=== PATIENT | male | born 1940 | race Caucasian/White ===

== ENCOUNTER 2017-11-06 12:18 | Emergency (ER) | payer OTHER ==
--- NOTE | 2017-11-06 13:36 | EDPHY ---
HPI/HX/ROS/PE/MDM Narrative: CHIEF COMPLAINT: Dizziness HISTORY OF PRESENT ILLNESS: This patient is an anticoagulated (Pradaxa) 77 year-old male with history of Parkinson's disease and atrial fibrillation complaining of several days of increasing dizziness. He becomes very dizzy and lightheaded with mild exertion. This has been quite debilitating to him. The patient reports he changed his diet and medications about six weeks ago, and switched to Mirapex XR instead of instant release 5 times per day. He has a neurogenic bladder which has kept him up at night and he has been unable to sleep well. He has felt considerable muscle weakness recently compared to his baseline. Denies any melena, hematochezia, or hematemesis. He endorses frequent constipation. He endorses infrequent stabbing left-sided chest pains over the last couple days. He reports a recent cardiac scan of some kind at [facility] that showed clear cardiac arteries. No fever, chills, shortness of breath, palpitations, vomiting, diarrhea, headache. REVIEW OF SYSTEMS: A comprehensive 10 system review of systems is otherwise negative aside from elements mentioned in the history of present illness and medical decision making. PAST MEDICAL HISTORY: Parkinson's disease (Mirapex, Sinemet). Atrial fibrillation (Pradaxa, Digitoxin). History of TIA. SOCIAL HISTORY: Nonsmoker. Occasional alcohol use. No marijuana or illicit drug use. VITAL SIGNS: Reviewed by me GENERAL: Pale. Well-developed, well-nourished, resting comfortably in no respiratory distress. HEENT: Atraumatic. Eyes: No icterus, no injection. Mouth: moist mucous membranes. No erythema or lesions. Neck: supple with no adenopathy. LUNGS: Diminished but clear to auscultation bilaterally, no wheezes, rhonchi or rales. CARDIAC: Irregularly irregular. No tachycardia. No rubs, murmurs or gallops. ABDOMEN: Soft, nontender, nondistended, bowel sounds normal. RECTAL: Greenish malodorous mucous present. No izaiah blood noted. BACK: No CVA tenderness. EXTREMITIES: No trauma. Trace edema at ankles. Range of motion is normal throughout. NEURO: Alert and oriented, grossly nonfocal. SKIN: Warm and dry, no rash. PSYCHIATRIC: Normal mentation, no agitation. Portions of this note were transcribed by a medical officer. I personally performed a history, physical exam, medical decision making, and confirmed accuracy of information the transcribed note. ED Course: Anticoagulated 77 y/o male with history of Parkinson's presents with sever days of increasing dizziness and weakness with near-syncopal episodes. Plan for EKG, chest x-ray, labs including CBC, chemistries, liver, lipase, troponin, UA, occult blood. IV established. Plan to administer 1L IV NS. 12-LEAD EKG: Please see the full report in [facility]. My interpretation: Atrial fibrillation. CXR negative for acute processes. Stool occult blood screen negative. 15:39 Patient states he is feeling better. Plan to road test. 15:50 Per nurse, the patient's BP dropped from about 148 systolic sitting to 87 systolic on standing. The patient still wanted to attempt walking, but felt considerably dizzy. Plan to admit for near-syncope, orthostatic hypotension, and dehydration. 15:57 Spoke with hospitalist service. Dr. Gore accepts admission. Ongoing IV fluids provided. 17:42 Patient is now feeling much better and was able to ambulate without symptoms. He is no longer orthostatic.. His , now at bedside, states his walk looks "amazing". The patient wishes to be discharged home. He has follow- up appointment with his physician tomorrow. As symptoms of orthostatic hypotension and near-syncope have resolved, I believe the patient is safe to be discharged home if he wishes. Plan to cancel admission, discharge home in good condition. He will follow up with his primary care provider tomorrow as scheduled and receive an additional 1L IV NS at that time. Follow up and return precautions discussed. The patient and his are comfortable with this plan. MDM: Differential diagnosis for the patient's primary complaint of dizziness and near syncope was considered including but not limited to vasovagal syncope, arrhythmia, dehydration, medication effects, and blood loss. - Data Points Imaging Results: Impression: No active cardiopulmonary disease seen. Dictated By: Jed Magdaleno MD Imaging: I viewed and interpreted images myself Laboratory Results: Laboratory Results 11/06/17 13:55 11/06/17 13:55 Medications Given: Discontinued Medications Sodium Chloride (Ns) 1,000 mls @ 0 mls/hr IV EDNOW ONE; Wide Open PRN Reason: Protocol Stop: 11/06/17 13:48 Last Admin: 11/06/17 14:07 Dose: 1,000 mls Sodium Chloride (Ns) 1,000 mls @ 250 mls/hr IV ONCE ONE PRN Reason: Protocol Stop: 11/06/17 19:59 Last Admin: 11/06/17 16:36 Dose: 1,000 mls Point of Care Test Results: Chemistry 11/06/17 14:12 POC Troponin I 0.03 ng/mL ng/mL (0.00-0.08) General Time Seen by Provider: 11/06/17 13:27 Initial Vital Signs: Initial Vital Signs Temperature (C) 36.3 C 11/06/17 12:20 Heart Rate 77 11/06/17 12:20 Respiratory Rate 18 11/06/17 12:20 Blood Pressure 102/70 11/06/17 12:20 O2 Sat (%) 98 11/06/17 12:20 O2 Delivery Mode Room Air Allergies/Adverse Reactions: Penicillins Allergy (Verified 11/06/17 12:20) Home Medications: Medication Instructions Recorded Carbidopa/Levodopa 25/100Mg 1 tab PO DAILY@06,10,14,18 03/20/12 [Sinemet 25/100 MG (RX)] Dabigatran Etexilate Mesyl 150 mg PO BID 03/20/12 [Pradaxa 150 MG (RX)] Pramipexole Di-HCl [Mirapex 1 mg 2.1 mg PO DAILY 11/06/17 (*)] Departure - Departure Disposition: Home, Routine, Self-Care Clinical Impression: Near syncope, Orthostatic hypotension, Dehydration Condition: Good Instructions: Dehydration (ED), Near Syncope (ED), Dizziness (ED) Additional Instructions: 1. Follow up with your primary care provider tomorrow as scheduled. You should receive an additional 1L of IV fluid at that time as we discussed. 2. Return to the emergency department for recurrence of symptoms, severe headache, dizziness, fainting, weakness, fever, chest pain, shortness of breath , or other worsening of condition or further concerns. Referrals: SAMUEL JIMENEZ [Primary Care Provider] - As per Instructions Report Scribed for: Mechelle Baker Report Scribed by: Anitha Webb Date of Report: 11/06/17 Time of Report: 16:28
[2017-11-06] MEDS ORDERED: NS 1,000 ML IV ONE ×2 (13:47→16:00)
[2017-11-06 14:13] LABS: PLATELET COUNT 172 10^3/uL (150-400)
[2017-11-06 14:18] LABS: INR 1.9 (0.83-1.16); PROTIME(PATIENT) 21.9 SEC (12.0-15.0)
[2017-11-06 16:45] VITALS: BP 133/95
--- NOTE | 2017-11-06 18:50 | CPEKG ---
Test Reason : OPEN Blood Pressure : / mmHG Vent. Rate : 083 BPM Atrial Rate : 114 BPM P-R Int : 083 ms QRS Dur : 078 ms QT Int : 472 ms P-R-T Axes : 000 -03 -73 degrees QTc Int : 555 ms Atrial fibrillation Borderline T abnormalities, diffuse leads Prolonged QT interval Confirmed by Mechelle Baker ([id number]) on 11/06/2017 6:50:34 PM Referred By: Confirmed By:Mechelle Baker
== END 2017-11-06 18:23 | disposition home or self-care (01) ==
LOC: UNDOADMOB 15:59
DX: R55 Syncope and collapse (principal); I95.1 Orthostatic hypotension; E86.0 Dehydration; G20 Parkinson's disease; I48.91 Unspecified atrial fibrillation; Z79.82 Long term (current) use of aspirin; Z86.73 Personal history of transient ischemic attack (TIA), and cerebral infarction without residual deficits
CPT/HCPCS: 84484-PO